=== PATIENT | female | born 1950 | race African-American/Black ===

== ENCOUNTER 2018-06-21 18:10 | Emergency (ER) | payer MEDICARE ==
[2018-06-21] MEDS ORDERED: ACYCLOVIR 800 MG TABLET PO ONE (20:17)
[2018-06-21] MEDS ORDERED: HYDROCODONE/ACETAMINOPHEN 5-325 MG (6 TAB/ER DISP) PO PRN (20:17)
[2018-06-21] MEDS ORDERED: ONDANSETRON ODT 4 MG TAB (6 TAB/ER DISP) PO PRN (20:17)
--- NOTE | 2018-06-21 20:19 | ER Document Report ---
HPI - HPI Patient complains to provider of: rash Time Seen by Provider: 06/21/18 20:02 Onset: Other Onset/Duration: Persistent Quality of pain: Achy Severity: Severe Pain Level: 5 Context: Patient presents emergency department with complaints of rash to her right shoulder radiating up to her right ear. Patient reports she started having shou lder pain last Monday. On Monday she noted a rash to her shoulder and neck. She reports vesicles. She denies fever vomiting diarrhea. She reports history of chickenpox when she was younger. Denies vision problems. Associated Symptoms: None Exacerbated by: Denies Relieved by: Denies Similar symptoms previously: No Recently seen / treated by doctor: No - CONSTITUTIONAL Constitutional: DENIES: Fever, Chills - EENT EENT: REPORTS: Ear Pain - right - REPRODUCTIVE Reproductive: DENIES: : - MUSCULOSKELETAL Musculoskeletal: REPORTS: Extremity pain - right shoulder Past Medical History - General Information source: Patient - Social History Smoking Status: Never Smoker Cigarette use (# per day): No Frequency of alcohol use: None Drug Abuse: None Lives with: Family Family History: Arthritis, CAD, CVA, Hyperlipidemia, Hypertension, Malignancy, Thyroid Disfunction Patient has suicidal ideation: No Patient has homicidal ideation: No Pulmonary Medical History: Denies: Hx Tuberculosis Renal/ Medical History: Denies: Hx Peritoneal Dialysis GI Medical History: Reports: Hx Irritable Bowel. Denies: Hx Pancreatitis Musculoskeletal Medical History: Reports Hx Arthritis, Reports Hx Musculoskeletal Trauma - Thumb Psychiatric Medical History: Reports: Hx Depression - leidy. in last year, pt c/o "mild, stress-related" depression Traumatic Medical History: Reports: Hx Fractures - Thumb Past Surgical History: Reports: Hx Section - 1979, 1981, 1985, Hx Oral Surgery - [place] teeth. Denies: Hx Appendectomy, Hx Bowel Surgery, Hx Cholecystectomy, Hx Hysterectomy, Hx Mastectomy, Hx Tonsillectomy, Hx Tubal Ligation - Immunizations Hx Diphtheria, Pertussis, Tetanus Vaccination: Yes - 2007 Vertical Provider Document - CONSTITUTIONAL Agree With Documented VS: Yes Exam Limitations: No Limitations General Appearance: WD/WN, No Apparent Distress - Nontoxic looking - INFECTION CONTROL TRAVEL OUTSIDE OF THE [place] IN LAST 30 DAYS: No - HEENT HEENT: Atraumatic, Normal ENT Exam, Normocephalic, PERRLA. negative: Conju ctival Injection, Pharyngeal Exudate, Pharyngeal Tenderness, Pharyngeal Erythema, Tympanic Membrane Red, Tympanic Membrane Bulging - NECK Neck: Supple. negative: Lymphadenopathy-Left, Lymphadenopathy-Right - RESPIRATORY Respiratory: Breath Sounds Normal, No Respiratory Distress - CARDIOVASCULAR Cardiovascular: Regular Rate - MUSCULOSKELETAL/EXTREMETIES Musculoskeletal/Extremeties: MAEW, FROM - NEURO Level of Consciousness: Awake, Alert, Appropriate Motor/Sensory: No Motor Deficit - DERM Integumentary: Warm, Dry, Rash - Scattered erythemic healing rash to her right shoulder going up her right neck no open wounds no vesicles. Course - Re-evaluation Re-evalutation: 06/21/18 20:39 Patient and her daughter were instructed on shingles. They were instructed on acyclovir pain medications. She has made an appointment with Dr. Casey. She was instructed to follow-up with primary care. Return to the emergency department should she start having pain in her eye. She verbalized understanding to all instructions Dictation of this chart was performed using voice recognition software; therefore, there may be some unintended grammatical errors. - Vital Signs Vital signs: Temp Pulse Resp BP Pulse Ox 98.2 F 74 20 149/89 H 99 06/21/18 18:27 06/21/18 18:27 06/21/18 18:27 06/21/18 18:27 06/21/18 18:27 Discharge - Discharge Clinical Impression: Shingles rash Qualifiers: Herpes zoster complications: without complications Qualified Code(s): B02.9 - Zoster without complications Condition: Stable Disposition: HOME, SELF-CARE Instructions: Acyclovir ([facility]), Antinausea Medication ([facility]), Oral Narcotic Me dication ([facility]), Shingles ([facility]) Additional Instructions: *You have been treated for shingles *Take medication as prescribed *Follow up with your primary care provider within one week *Return to ED for worsening condition, changes, needs Monitor your blood pressure. Your blood pressure was elevated today. This may be because you were anxious, in pain or because you need medication. It is important to follow up with your primary care provider for full evaluation. Prescriptions: Acyclovir [Zovirax 800 mg Tablet] 800 mg PO 5XD #35 tab Forms: Elevated Blood Pressure Referrals: SANIA RAINEY DO [Primary Care Provider] - Follow up as needed
[2018-06-21 20:49] VITALS: BP 150/92
[2018-06-21] MEDS ORDERED: ACYCLOVIR 800 MG TABLET ONE (20:54)
== END 2018-06-21 21:14 | disposition home or self-care (01) ==
LOC: ER 18:10
DX: B02.9 Zoster without complications (principal); R21 Rash and other nonspecific skin eruption
CPT/HCPCS: 99283; A9270 ×3; J3490

== ENCOUNTER 2019-05-12 14:18 | Emergency (ER) | payer MEDICARE ==
[2019-05-12] MEDS ORDERED: NORMAL SALINE 1000 ML 1,000 ML IV ONE (14:45)
[2019-05-12] MEDS ORDERED: METOCLOPRAMIDE HCL INJ/PF 10 MG/2 ML SDV IV ONE (14:45)
--- NOTE | 2019-05-12 14:49 | ER Document Report ---
ED Medical Screen (RME) - General Chief Complaint: Headache Stated Complaint: HEADACHE,NUMBNESS Time Seen by Provider: 05/12/19 14:37 Primary Care Provider: SANIA RAINEY DO [Primary Care Provider] - Follow up as needed Notes: Patient is a 68-year-old female who presents the emergency department with a chief complaint of left-sided neck pain and headache that started about a week ago. She has been taking Tylenol, but has not had relief of her symptoms. She is not sure if she slept wrong. Exam: Tenderness noted to left side of neck. I have greeted and performed a rapid initial assessment of this patient. A comprehensive ED assessment and evaluation of the patient, analysis of test results and completion of medical decision making process will be conducted by an additional ED providers. TRAVEL OUTSIDE OF THE [place] IN LAST 30 DAYS: No - Related Data Allergies/Adverse Reactions: aspirin [Aspirin] Allergy (Verified 05/12/19 14:37) NSAIDS (Non-Steroidal Anti-Inflamma Allergy (Verified 05/12/19 14:37) Past Medical History Pulmonary Medical History: Denies: Hx Tuberculosis Neurological Medical History: Denies: Hx Parkinson's Disease Renal/ Medical History: Denies: Hx Peritoneal Dialysis GI Medical History: Reports: Hx Irritable Bowel. Denies: Hx Pancreatitis Musculoskeltal Medical History: Reports Hx Arthritis, Reports Hx Musculoskeletal Trauma - Thumb, Denies Hx Systemic Lupus Erythematosus Psychiatric Medical History: Reports: Hx Depression - leidy. in last year, pt c/o "mild, stress-related" depression Traumatic Medical History: Reports: Hx Fractures - Thumb Past Surgical History: Reports: Hx Section - 1979, 1981, 1985, Hx Oral Surgery - [place] teeth. Denies: Hx Appendectomy, Hx Bowel Surgery, Hx Cholecystectomy, Hx Hysterectomy, Hx Mastectomy, Hx Tonsillectomy, Hx Tubal Ligation - Immunizations Hx Diphtheria, Pertussis, Tetanus Vaccination: Yes - 2007 Physical Exam - Vital signs Vitals: Temp Pulse Resp BP Pulse Ox 98.5 F 112 H 24 H 181/96 H 96 05/12/19 14:26 05/12/19 14:26 05/12/19 14:26 05/12/19 14:26 05/12/19 14:26 Course - Vital Signs Vital signs: Temp Pulse Resp BP Pulse Ox 98.5 F 112 H 24 H 181/96 H 96 05/12/19 14:26 05/12/19 14:26 05/12/19 14:26 05/12/19 14:26 05/12/19 14:26 Doctor's Discharge - Discharge Referrals: SANIA RAINEY, [Primary Care Provider] - Follow up as needed
[2019-05-12] MEDS ORDERED: MORPHINE SULFATE 10 MG/ML INJ IM ONE ×2 (14:54→15:16)
[2019-05-12] MEDS ORDERED: METOCLOPRAMIDE HCL INJ/PF 10 MG/2 ML SDV IM ONE (15:15)
[2019-05-12 15:22] LABS: ABSOLUTE EOSINOPHILS # (AUTO) 0.2 10^3/uL (0.0-0.6); ABSOLUTE LYMPHOCYTES (AUTO) 1.5 10^3/uL (0.5-4.7); ABSOLUTE MONOCYTES (AUTO) 0.5 10^3/uL (0.1-1.4); ABSOLUTE NEUT (AUTO) 3.4 10^3/uL (1.7-8.2); BASOPHILS % (AUTO) 0.7 % (0-2); EOSINOPHILS % (AUTO) 3.6 % (0-6); HEMATOCRIT 38.5 % (36.0-47.0); HEMOGLOBIN 12.3 g/dL (12.0-15.5); LYMPHOCYTES % (AUTO) 26.3 % (13-45); MEAN CORPUSCULAR HEMOGLOBIN 24.7 pg (27.0-33.4); MEAN CORPUSCULAR HGB CONC 32.1 g/dL (32.0-36.0); MEAN CORPUSCULAR VOLUME 77 fl (80-97); MONOCYTES % (AUTO) 8.3 % (3-13); PLATELET COUNT 134 10^3/uL (150-450); RED CELL DISTRIBUTION WIDTH 15.2 % (11.5-14.0); SEGMENTED NEUTROPHILS % (AUTO) 61.1 % (42-78); TOTAL CELLS COUNTED % (AUTO) 100 %; WHITE BLOOD COUNT 5.6 10^3/uL (4.0-10.5)
[2019-05-12 15:38] LABS: APPEARANCE,URINE CLEAR; BILIRUBIN,URINE NEGATIVE (NEGATIVE); COLOR,URINE STRAW; GLUCOSE, URINE NEGATIVE (NEGATIVE); KETONES,URINE NEGATIVE (NEGATIVE); LEUKOCYTE ESTERASE,URINE LARGE (NEGATIVE); NITRITE,URINE NEGATIVE (NEGATIVE); PROTEIN,URINE NEGATIVE (NEGATIVE); UROBILINOGEN,URINE NEGATIVE mg/dL (<2.0)
[2019-05-12 15:46] LABS: ALBUMIN 4.4 g/dL (3.5-5.0); ALKALINE PHOSPHATASE 80 U/L (38-126); ANION GAP 10 (5-19); ASPARTATE AMINO TRANSFERASE 18 U/L (14-36); BILIRUBIN,DIRECT 0.3 mg/dL (0.0-0.4); BILIRUBIN,TOTAL 0.5 mg/dL (0.2-1.3); BLOOD UREA NITROGEN 12 mg/dL (7-20); CALCIUM 9.7 mg/dL (8.4-10.2); CARBON DIOXIDE 30 mmol/L (22-30); CHLORIDE 102 mmol/L (98-107); GLUCOSE 101 mg/dL (75-110); POTASSIUM 3.6 mmol/L (3.6-5.0); TOTAL PROTEIN 8.6 g/dL (6.3-8.2)
[2019-05-12] MEDS ORDERED: CYCLOBENZAPRINE HCL 10 MG TABLET PO ONE (17:45)
--- NOTE | 2019-05-12 19:01 | ER Document Report ---
ED General - General Chief Complaint: Neck and Upper Back Pain Stated Complaint: HEADACHE,NUMBNESS Time Seen by Provider: 05/12/19 14:37 Primary Care Provider: SANIA RAINEY DO [NO LOCAL MD] - Follow up tomorrow Notes: 68-year-old female presents with left neck pain and headache for the past week. Patient states she has been taking Tylenol with no relief. Patient states she is unsure if she slept wrong. Patient denies any chest pain, shortness of breath, nausea/vomiting, weakness, abdominal pain, diarrhea, constipation. TRAVEL OUTSIDE OF THE [place] IN LAST 30 DAYS: No - Related Data Allergies/Adverse Reactions: aspirin [Aspirin] Allergy (Verified 05/12/19 14:37) NSAIDS (Non-Steroidal Anti-Inflamma Allergy (Verified 05/12/19 14:37) Past Medical History - Social History Smoking Status: Never Smoker Chew tobacco use (# tins/day): No Frequency of alcohol use: None Drug Abuse: None Family History: Arthritis, CAD, CVA, Hyperlipidemia, Hypertension, Malignancy, Thyroid Disfunction Patient has suicidal ideation: No Patient has homicidal ideation: No Pulmonary Medical History: Denies: Hx Tuberculosis Neurological Medical History: Denies: Hx Parkinson's Disease Renal/ Medical History: Denies: Hx Peritoneal Dialysis GI Medical History: Reports: Hx Irritable Bowel. Denies: Hx Pancreatitis Musculoskeletal Medical History: Reports Hx Arthritis, Reports Hx Musculoskeletal Trauma - Thumb, Denies Hx Systemic Lupus Erythematosus Psychiatric Medical History: Reports: Hx Depression - leidy. in last year, pt c/o "mild, stress-related" depression Traumatic Medical History: Reports: Hx Fractures - Thumb Past Surgical History: Reports: Hx Section - 1979, 1981, 1985, Hx Oral Surgery - [place] teeth. Denies: Hx Appendectomy, Hx Bowel Surgery, Hx Cholecystectomy, Hx Hysterectomy, Hx Mastectomy, Hx Tonsillectomy, Hx Tubal Ligation - Immunizations Hx Diphtheria, Pertussis, Tetanus Vaccination: Yes - 2007 Review of Systems - Review of Systems Notes: Constitutional: Negative for fever. HENT: Negative for sore throat. Eyes: Negative for visual changes. Cardiovascular: Negative for chest pain. Respiratory: Negative for shortness of breath. Gastrointestinal: Negative for abdominal pain, vomiting or diarrhea. Genitourinary: Negative for dysuria. Musculoskeletal: Positive for left neck pain. Negative for back pain. Skin: Negative for rash. Neurological: Positive for headaches. Negative for weakness or numbness. 10 point ROS negative except as marked above and in HPI. Physical Exam - Vital signs Vitals: Temp Pulse Resp BP Pulse Ox 98.5 F 112 H 24 H 181/96 H 96 05/12/19 14:26 05/12/19 14:26 05/12/19 14:26 05/12/19 14:05/12/19 14:26 - Notes Notes: GENERAL: Well-appearing, well-nourished and in no acute distress. HEAD: Atraumatic, normocephalic. EYES: Pupils equal round and reactive to light, extraocular movements intact, sclera anicteric, conjunctiva are normal. NECK: No spinal tenderness. Left muscle spasm to left paraspinal muscles. Normal range of motion, supple without lymphadenopathy or JVD. EXTREMITIES: Normal range of motion, no pitting or edema. No clubbing or cyanosis. NEUROLOGICAL: Cranial nerves II through XII grossly intact. Normal speech, normal gait. PSYCH: Normal mood, normal affect. SKIN: Warm, Dry, normal turgor, no rashes or lesions noted. Course - Re-evaluation Re-evalutation: 05/12/19 nontoxic, well-appearing 68-year-old female presents with left neck pain and headache for 1 week. Patient is unsure if she slept on it wrong. Denies any injury. Denies fever, nausea/vomiting, chest pain, shortness of breath. Patient is afebrile. No leukocytosis. Exam is consistent with left muscle spasm of neck. No spinal tenderness to indicate further imaging is warranted. Patient was given medication with little relief in triage. Muscle relaxer was ordered and will reassess. Discussed all lab results with patient and plan of care. 05/12/19 19:00 RN informed that pt wants to leave. Patient given close follow- up with PCP. Patient also given strict return precautions. All questions/concerns addressed prior to discharge - Vital Signs Vital signs: Temp Pulse Resp BP Pulse Ox 98.5 F 112 H 24 H 181/96 H 96 05/12/19 14:26 05/12/19 14:26 05/12/19 14:26 05/12/19 14:05/12/19 14: - Laboratory Result Diagrams: 05/12/19 14:56 05/12/19 14:56 Laboratory results interpreted by me: 05/12/19 05/12/19 05/12/19 14:56 14:56 14:56 MCV 77 L MCH 24.7 L RDW 15.2 H Plt Count 134 L Total Protein 8.6 H Urine Blood SMALL H Ur Leukocyte Esterase LARGE H Discharge - Discharge Clinical Impression: Muscle spasm Condition: Stable Disposition: HOME, SELF-CARE Additional Instructions: Your lab work was reassuring today. Your exam was most consistent with muscle spasm. Please take Flexeril as prescribed. Do not drink or drive while taking as it may make you drowsy. Return to ER for any worsening symptoms, including worsening pain, worse headache of life, confusion, altered mental status, fever, inability to move neck, chest pain, shortness of breath, or any other symptoms that are concerning to you. Prescriptions: Cyclobenzaprine HCl [Flexeril 10 mg Tablet] 10 mg PO TIDP PRN #15 tab PRN Reason: Referrals: SANIA RAINEY DO [NO LOCAL MD] - Follow up tomorrow
[2019-05-12 19:26] VITALS: BP 185/87
== END 2019-05-12 19:25 | disposition home or self-care (01) ==
LOC: ER 14:18
DX: M62.838 Other muscle spasm (principal); M54.2 Cervicalgia; M54.6 Pain in thoracic spine; R51 Headache; Z88.6 Allergy status to analgesic agent
CPT/HCPCS: 36415; 85025; 80053; 81001; A9270; J2765; J2270; 96372; 99283